=== PATIENT | female | born 1935 | race Caucasian/White ===

== ENCOUNTER 2018-02-09 18:58 | Emergency (ER) | payer OTHER ==
--- NOTE | 2018-02-09 20:45 | RAD REPORT ---
EXAM DESCRIPTION: Pooja Single View02/09/2018 8:16 pm CLINICAL HISTORY: sob COMPARISON: none FINDINGS: The lungs appear clear of acute infiltrate. The heart is mildly enlarged IMPRESSION: No acute abnormalities displayed
--- NOTE | 2018-02-09 20:48 | RAD REPORT ---
EXAM DESCRIPTION: CT - Head Brain Wo Cont - 02/09/2018 8:31 pm CLINICAL HISTORY: Alteration of consciousness/ general weakness COMPARISON: February 2017 TECHNIQUE: Computed axial tomography of the head was obtained. IV contrast was not requested. All CT scans are performed using dose optimization technique as appropriate and may include automated exposure control or mA/KV adjustment according to patient size. FINDINGS: An intracranial bleed is not seen . The ventricles are normal in caliber. No extra-axial fluid collection is noted. Moderate low-density areas within periventricular, deep and subcortical white matter likely represent ischemic changes secondary to small vessel disease. Fluid within the sinuses/ mastoids is not seen. IMPRESSION: No acute intracranial abnormality is seen. If patient's symptoms persist MRI of the bra in would be recommended.
[2018-02-09 21:28] LABS: Absolute Lymphocytes (CBC) 1.5 K/uL (0.7-4.9); Absolute Monocytes 0.7 K/uL (0.1-1.3); Absolute Neutrophil 4.3 K/uL (1.8-8.0); Basophils % 0.5 % (0-1.3); Eosinophils % 2.5 % (0-4.4); Hematocrit 38.1 % (36.0-45.0); Lymphocytes % 21.7 % (15.3-44.8); MCH 30.8 pg (27.0-35.0); MCV 90.5 fL (80-100); MPV 8.2 fL (7.6-11.3); Monocytes % 10.5 % (3.3-12.3); RBC Red Blood Cell Count 4.21 M/uL (3.86-4.86)
[2018-02-09 21:46] LABS: Protime INR 1.08
[2018-02-09 21:48] LABS: Potassium 4.1 mEq/L (3.6-5.0)
[2018-02-09 21:52] LABS: Urine Blood NEGATIVE (NEG); Urine Glucose NEGATIVE (NEG); Urine Protein NEGATIVE (NEG); Urine pH 6.5 (5.0-7.0)
[2018-02-09 21:54] LABS: Albumin 4.2 g/dL (3.2-5.5); Bilirubin Direct 0.1 mg/dL (0-0.2); Bilirubin Total 0.5 mg/dL (0.3-1.2); Magnesium 1.6 mg/dL (1.8-2.5); Protein, Total 7.2 g/dL (6.0-8.3)
[2018-02-09 21:57] LABS: CKMB Creatine Kinase MB 1.5 ng/ml (0.3-4.0)
--- NOTE | 2018-02-09 22:39 | ER ---
Nurse's Notes [facility] Name: Teetee Cherry Age: 82 yrs Sex: Female : 1935 Arrival Date: 02/09/2018 Time: 19:02 Bed 15 Private MD: Varun Newton V Diagnosis: Hypomagnesemia;Weakness-General Presentation: 02/09 19:31 Presenting complaint: Patient states: Patient started having difficulty breathing today ao and a feeling of weakness. Patient complains of weakness and difficulty breathing. Patient denies chills, fever, vomiting but reports some nausea. Transition of care: patient was not received from another setting of care. Onset of symptoms was February 09, 2018 at 06:00. Initial Sepsis Screen: Does the patient meet any 2 criteria? Mean Arterial Pressure (MAP) < 65. No. Patient's initial sepsis screen is negative. Does the patient have a suspected source of infection? No. Patient's initial sepsis screen is negative. Care prior to arrival: Saw Dr Newton this morning. 19:31 Method Of Arrival: Ambulatory ao 19:31 Acuity: RADHA 3 ao Triage Assessment: 19:45 General: Behavior is calm, appropriate for age. General: Appears in no apparent ao distress. Respiratory: Reports shortness of breath on exertion Onset: The symptoms/episode began/occurred this morning, the patient has mild shortness of breath. Historical: - Allergies: 19:40 No Known Allergies; ao - Home Meds: 19:40 Norvasc 5 mg Oral tab 1 tab once daily [Active]; symbicord [Active]; levothyroxine 125 ao mcg tab 1 tab once daily [Active]; Eliquis 5 mg oral tab 1 tab 2 times per day [Active]; citalopram 20 mg tab 1 tab once daily [Active]; Diovan 40 mg Oral tab 1 tab 2 times per day [Active]; - PMHx: 19:40 Hypertension; Atrial Fib; Hypothyroidism; dyslipidemia; ao - PSHx: 19:40 Cholecystectomy; ao - Immunization history:: Adult Immunizations unknown. - Social history:: Smoking status: Patient/guardian denies using tobacco, Patient/guardian denies using alcohol, street drugs. Screenin:40 Abuse screen: Denies threats or abuse. Denies injuries from another. Nutritional ao screening: No deficits noted. Tuberculosis screening: No symptoms or risk factors identified. Fall Risk None identified. Assessment: 19:41 General: Appears in no apparent distress. Pain: Denies pain. Neuro: Level of ao Consciousness is awake, alert, obeys commands, Oriented to person, place, time, situation, Moves all extremities. Speech is normal. Cardiovascular: Capillary refill < 3 seconds Patient's skin is warm and dry. Rhythm is regular. Respiratory: Airway is patent Respiratory effort is even, unlabored, Respiratory pattern is regular, symmetrical, Breath sounds are diminished. GI: Abdomen is obese. : No signs and/or symptoms were reported regarding the genitourinary system. EENT: No signs and/or symptoms were reported regarding the EENT system. Derm: Skin is intact, Skin is pink, warm \T\ dry. Skin temperature is warm. Musculoskeletal: Range of motion: limited in all extremities. 21:18 Reassessment: No changes from previously documented assessment. Patient and/or family ao updated on plan of care and expected duration. Pain level reassessed. Patient is alert, oriented x 3, equal unlabored respirations, skin warm/dry/pink. Waiting on results. Lab work just draw due to not been able to get an IV. Labs had been send. 22:20 Reassessment: No changes from previously documented assessment. Patient and/or family ao updated on plan of care and expected duration. Pain level reassessed. Patient is alert, oriented x 3, equal unlabored respirations, skin warm/dry/pink. 23:20 Reassessment: Patient appears in no apparent distress at this time. Patient and/or ao family updated on plan of care and expected duration. Pain level reassessed. Patient is alert, oriented x 3, equal unlabored respirations, skin warm/dry/pink. Patient to be discharge after magnesium that is running for two hour is complete. 02/10 00:20 Reassessment: Dc instructions given to patient and daughter. Patient understand the POC ao and to follow up with PCP. Patient has no questions at this time. Vital Signs: 02/09 19:35 BP 170 / 80; Pulse 70; Resp 14; Temp 99.7(A); Pulse Ox 96% on R/A; Weight 108.86 kg ao (R); Height 5 ft. 9 in. (175.26 cm) (R); Pain 0/10; 20:20 BP 164 / 83; Pulse 78; Resp 16; Pulse Ox 98% on R/A; Pain 0/10; ao 21:21 BP 146 / 88; Pulse 64; Resp 16; Pulse Ox 96% on R/A; Pain 0/10; ao 22:20 BP 109 / 63; Pulse 66; Resp 16; Pulse Ox 95% on R/A; ao 23:30 BP 130 / 91; Pulse 68; Resp 14; Pulse Ox 96% on R/A; ao 02/10 00:23 BP 130 / 66; Pulse 68; Resp 18; Pulse Ox 98% on R/A; ao 02/09 19:35 Body Mass Index 35.44 (108.86 kg, 175.26 cm) ao ED Course: 02/09 19:02 Patient arrived in ED. al2 19:03 Varun Newton MD is Private Physician. al2 19:31 Justin Marcano, RN is Primary Nurse. ao 19:35 Triage completed. ao 19:36 Arm band placed on right wrist. Patient placed in an exam room, on a stretcher, on ao oxygen, on conveyor monitor, on pulse oximetry, Patient notified of wait time. 19:45 Patient has correct armband on for positive identification. pvc monitor on. Pulse ao ox on. NIBP on. 19:54 Juan Morocho PA is PHCP. cp 19:54 Juan Garcia MD is Attending Physician. cp 20:16 X-ray completed. Portable x-ray completed in exam room. Patient tolerated procedure bb2 well. 20:16 XRAY Chest (1 view) In Process Unspecified. EDMS 20:[address] via stretcher. nj 20:31 CT Head Brain wo Cont In Process Unspecified. EDMS 21:21 Inserted saline lock: 20 gauge in left antecubital area, using aseptic technique. Blood ao collected. 22:37 Varun Newton MD is Referral Physician. cp 02/10 00:23 IV discontinued, intact, bleeding controlled, No redness/swelling at site. Pressure ao dressing applied. 00:26 No provider procedures requiring assistance completed. ao Administered Medications: 02/09 23:00 Drug: Aspirin Chewable Tablet 324 mg Route: PO; ao 02/10 00:00 Follow up: Response: No adverse reaction ao 02/09 23:00 Drug: Magnesium Sulfate 2 grams Route: IVPB; Infused Over: 2 hrs; Site: left ao antecubital; 02/10 00:00 Follow up: IV Status: Completed infusion; IV Intake: 50ml ao Intake: 00:00 IV: 50ml; Total: 50ml. ao Outcome: 02/09 22:39 Discharge ordered by MD. browning 02/10 00:26 Discharged to home ambulatory, with crutches. ao Condition: stable Discharge instructions given to patient, Instructed on discharge instructions, follow up and referral plans. Demonstrated understanding of instructions, follow-up care, medications, Prescriptions given X 1. 00:28 Patient left the ED. ao Signatures: Dispatcher [employer] EDMS Juan Morocho PA PA cp Ortiz, Alex, RN RN Ian De La Vega Brittany bb2 Love, Angelica al2 Corrections: (The following items were deleted from the chart) 02/09 21:21 20:20 BP 146 / 88; Pulse 64bpm; Resp 16bpm; Pulse Ox 96% RA; Pain 0/10; ao ao
--- NOTE | 2018-02-09 22:39 | EDPHYS ---
Physician Documentation [facility] Name: Teetee Cherry Age: 82 yrs Sex: Female : 1935 Arrival Date: 02/09/2018 Time: 19:02 Bed 15 Private MD: Varun Newton V ED Physician Juan Garcia HPI: 02/09 20:10 This 82 yrs old Female presents to ER via Ambulatory with complaints of cp Breathing Difficulty, Weakness, Nausea. 20:10 The patient has shortness of breath with light activity. Onset: The symptoms/episode cp began/occurred today. Duration: The symptoms are continuous. Associated signs and symptoms: Pertinent positives: general weakness, Pertinent negatives: chest pain, diaphoresis, dizziness, fever. 20:10 Severity of symptoms: in the emergency department the symptoms have improved moderately.cp Historical: - Allergies: 19:40 No Known Allergies; ao - Home Meds: 19:40 Norvasc 5 mg Oral tab 1 tab once daily [Active]; symbicord [Active]; levothyroxine 125 ao mcg tab 1 tab once daily [Active]; Eliquis 5 mg oral tab 1 tab 2 times per day [Active]; citalopram 20 mg tab 1 tab once daily [Active]; Diovan 40 mg Oral tab 1 tab 2 times per day [Active]; - PMHx: 19:40 Hypertension; Atrial Fib; Hypothyroidism; dyslipidemia; ao - PSHx: 19:40 Cholecystectomy; ao - Immunization history:: Adult Immunizations unknown. - Social history:: Smoking status: Patient/guardian denies using tobacco, Patient/guardian denies using alcohol, street drugs. ROS: 20:15 Constitutional: Negative for body aches, chills, fever, poor PO intake. cp 20:15 Eyes: Negative for injury, pain, redness, and discharge. cp 20:15 ENT: Negative for drainage from ear(s), ear pain, sore throat, difficulty swallowing, difficulty handling secretions. 20:15 Neck: Negative for pain with movement, pain at rest, stiffness. 20:15 Cardiovascular: Negative for chest pain, edema, palpitations. 20:15 Respiratory: Positive for shortness of breath, Negative for cough, wheezing. 20:15 Abdomen/GI: Negative for abdominal pain, vomiting, diarrhea, constipation, black/tarry stool, rectal bleeding. 20:15 Back: Negative for pain at rest, pain with movement. 20:15 : Negative for urinary symptoms. 20:15 Skin: Negative for cellulitis, rash. 20:15 Neuro: Positive for general weakness, Negative for altered mental status, headache, loss of consciousness, syncope, near syncope. 20:15 All other systems are negative. Exam: 19:40 ECG was reviewed by the Attending Physician. cp 20:20 Constitutional: The patient appears in no acute distress, alert, awake, cp non-diaphoretic, non-toxic, well developed, well nourished. 20:20 Head/Face: Normocephalic, atraumatic. Eyes: Pupils equal round and reactive to light, cp extra-ocular motions intact. Lids and lashes normal. Conjunctiva and sclera are non-icteric and not injected. Cornea within normal limits. Periorbital areas with no swelling, redness, or edema. ENT: Nares patent. No nasal discharge, no septal abnormalities noted. Tympanic membranes are normal and external auditory canals are clear. Oropharynx with no redness, swelling, or masses, exudates, or evidence of obstruction, uvula midline. Mucous membranes moist. Neck: Trachea midline, no thyromegaly or masses palpated, and no cervical lymphadenopathy. Supple, full range of motion without nuchal rigidity, or vertebral point tenderness. No Meningismus. Chest/axilla: Normal chest wall appearance and motion. Nontender with no deformity. No lesions are appreciated. 20:20 Cardiovascular: Rate: normal, Rhythm: regular, Pulses: Pulses are 2+ in right radial artery and left radial artery. Edema: is not appreciated, JVD: is not appreciated. 20:20 Respiratory: the patient does not display signs of respiratory distress, Respirations: normal, no use of accessory muscles, no retractions, no splinting, no tachypnea, labored breathing, is not present, Breath sounds: are clear throughout, no decreased breath sounds, no stridor, no wheezing. 20:20 Abdomen/GI: Inspection: abdomen appears normal, Bowel sounds: active, all quadrants, Palpation: abdomen is soft and non-tender, in all quadrants, voluntary guarding, is not appreciated, involuntary guarding, is not appreciated. 20:20 Back: pain, is absent, ROM is normal. 20:20 Skin: cellulitis, is not appreciated, no rash present. 20:20 Neuro: Orientation: to person, place \T\ time. Mentation: lucid, able to follow commands, Cerebellar function: Romberg testing is negative, normal finger to nose testing, Motor: moves all fours, strength is normal, Sensation: no obvious gross deficits. Vital Signs: 19:35 BP 170 / 80; Pulse 70; Resp 14; Temp 99.7(A); Pulse Ox 96% on R/A; Weight 108.86 kg ao (R); Height 5 ft. 9 in. (175.26 cm) (R); Pain 0/10; 20:20 BP 164 / 83; Pulse 78; Resp 16; Pulse Ox 98% on R/A; Pain 0/10; ao 21:21 BP 146 / 88; Pulse 64; Resp 16; Pulse Ox 96% on R/A; Pain 0/10; ao 22:20 BP 109 / 63; Pulse 66; Resp 16; Pulse Ox 95% on R/A; ao 23:30 BP 130 / 91; Pulse 68; Resp 14; Pulse Ox 96% on R/A; ao 02/10 00:23 BP 130 / 66; Pulse 68; Resp 18; Pulse Ox 98% on R/A; ao 02/09 19:35 Body Mass Index 35.44 (108.86 kg, 175.26 cm) ao MDM: 02/09 19:54 Patient medically screened. cp 21:00 Differential diagnosis: asthma, Bronchitis CHF exacerbation, Chronic Obstructive cp Pulmonary Disease pneumonia, Unstable Angina CVA, UTI, electrolyte abnormality. 22:30 Data reviewed: vital signs, nurses notes, lab test result(s), EKG, radiologic studies. cp 22:30 Test interpretation: by ED physician or midlevel provider: ECG, plain radiologic cp studies. 22:35 Physician consultation: Varun Newton MD was called at 22:35, was contacted at 22:35, cp regarding patient's condition, recommends discharge to home and f/u in clinic. 02/09 20:01 Order name: Basic Metabolic Panel; Complete Time: 22:12 cp 02/09 22:12 Interpretation: Normal except: BUN 27; CRE 1.34; GFR 38. cp 02/09 20:01 Order name: BNP; Complete Time: 22:12 cp 02/09 22:12 Interpretation: BNP 134; Reviewed. cp 02/09 20:01 Order name: CBC with Diff; Complete Time: 21:32 cp 02/09 20:01 Order name: Ckmb; Complete Time: 22:12 cp 02/09 20:01 Order name: CPK; Complete Time: 22:12 cp 02/09 20:01 Order name: LFT's; Complete Time: 22:12 cp 02/09 20:01 Order name: Magnesium; Complete Time: 22:12 cp 02/09 20:01 Order name: PT-INR; Complete Time: 22:13 cp 02/09 22:14 Interpretation: Abnormal: PT 12.7. cp 02/09 20:01 Order name: Ptt, Activated; Complete Time: 22:13 cp 02/09 20:01 Order name: Troponin (emerg Dept Use Only); Complete Time: 22:12 cp 02/09 20:01 Order name: XRAY Chest (1 view); Complete Time: 20:52 cp 02/09 20:52 Interpretation: Report review. 02/09 20:11 Order name: CT Head Brain wo Cont; Complete Time: 20:52 02/09 20:52 Interpretation: Report reviewed. 02/09 21:36 Order name: Urine Dipstick--Ancillary (enter results); Complete Time: 22:12 oe 02/09 20:01 Order name: EKG; Complete Time: 20:02 cp 02/09 20:01 Order name: Cardiac monitoring; Complete Time: 20:22 cp 02/09 20:01 Order name: EKG - Nurse/Tech; Complete Time: 20:22 cp 02/09 20:01 Order name: IV Saline Lock; Complete Time: 21:18 cp 02/09 20:01 Order name: Labs collected and sent; Complete Time: 21:18 cp 02/09 20:01 Order name: O2 Per Protocol; Complete Time: 20:22 cp 02/09 20:01 Order name: O2 Sat Monitoring; Complete Time: 20:22 cp 02/09 20:01 Order name: Urine Dipstick-Ancillary (obtain specimen); Complete Time: 21:18 cp 02/09 22:23 Order name: PO challenge; Complete Time: 23:10 cp EC:40 Rate is 59 beats/min. Rhythm is irregularly irregular. QRS interval is normal at 100 cp msec. QT interval is normal. No ST changes noted. Interpreted by me. Reviewed by me. Administered Medications: 23:00 Drug: Aspirin Chewable Tablet 324 mg Route: PO; ao 02/10 00:00 Follow up: Response: No adverse reaction ao 02/09 23:00 Drug: Magnesium Sulfate 2 grams Route: IVPB; Infused Over: 2 hrs; Site: left ao antecubital; 02/10 00:00 Follow up: IV Status: Completed infusion; IV Intake: 50ml ao Disposition: 14:31 Co-signature as Attending Physician, Juan Garcia MD I agree with the assessment and [facility] plan of care. Disposition: 02/09/18 22:39 Discharged to Home. Impression: Hypomagnesemia, Weakness - General. - Condition is Stable. - Discharge Instructions: Hypomagnesemia, Weakness. - Prescriptions for magnesium - take 400 milligram by ORAL route once daily for 3 days; 3 milligram. - Medication Reconciliation Form, Thank You Letter, Antibiotic Education, Prescription Opioid Use form. - Follow up: Varun Newton MD; When: call office in morning for follow up appointment; Reason: Recheck today's complaints. - Problem is new. - Symptoms have improved. Signatures: Dispatcher [employer] EDJuan Albert MD MD cha Page, Corey, PA PA cp Ortiz, Alex, RN RN ao
[2018-02-09] MEDS ORDERED: ASPIRIN 81 MG CHEWABLE TABLET ONE (23:12)
[2018-02-09] MEDS ORDERED: Magnesium Sulfate 2gm IVPB 2 G/50 ML BAG IV ONE (23:12)
[2018-02-10 00:42] VITALS: TEMP 99.7
[2018-02-10 00:48] VITALS: BP 130/66; O2SAT 98
--- NOTE | 2018-02-10 16:28 | EKG ---
Test Date: 2018-02-09 Test Time: 19:35:42 Radio Frequency Engineer: DENNIS MEASUREMENT RESULTS: Intervals: Rate: 59 [place]: QRSD: 100 QT: 444 QTc: 439 [place]: P: UT: QRS: -8 T: 56 INTERPRETIVE STATEMENTS: Atrial fibrillation with slow ventricular response Nonspecific T wave abnormality Abnormal ECG Compared to ECG 03/07/2015 19:14:12 T-wave abnormality now present Ventricular premature complex(es) no longer present Myocardial infarct finding no longer present Electronically Signed On 02-10-18 16:23:59 CDT by Obinna Denson
== END 2018-02-10 00:28 | disposition home or self-care (01) ==
LOC: ER 18:58
DX: E83.42 Hypomagnesemia (principal); I10 Essential (primary) hypertension; E03.9 Hypothyroidism, unspecified; I48.91 Unspecified atrial fibrillation; Z79.01 Long term (current) use of anticoagulants
CPT/HCPCS: 36415; 70450; 71045; 80048; 80076; 81003; 82550; 82553; 83735; 83880; 84484; 85025; 85610; 85730; 93005; 96365; 99285; J3475

== ENCOUNTER 2018-06-05 23:08 | Emergency (ER) | payer OTHER ==
[2018-06-06 00:56] LABS: Absolute Lymphocytes (CBC) 1.3 K/uL (0.7-4.9); Absolute Monocytes 0.5 K/uL (0.1-1.3); Absolute Neutrophil 3.2 K/uL (1.8-8.0); Basophils % 0.5 % (0-1.3); Eosinophils % 3.5 % (0-4.4); Hematocrit 36.8 % (36.0-45.0); Lymphocytes % 24.8 % (15.3-44.8); MCH 31.5 pg (27.0-35.0); MCV 91.7 fL (80-100); Monocytes % 10.2 % (3.3-12.3); RBC Red Blood Cell Count 4.02 M/uL (3.86-4.86)
[2018-06-06 01:00] LABS: Protime INR 1.13
[2018-06-06 01:12] LABS: Albumin 3.7 g/dL (3.4-5.0); Bilirubin Direct 0.2 mg/dL (0-0.2); Bilirubin Total 0.7 mg/dL (0.2-1.0); Magnesium 2.1 mg/dL (1.8-2.4); Potassium 3.5 mmol/L (3.5-5.1); Protein, Total 7.1 g/dL (6.4-8.2)
[2018-06-06 01:44] LABS: Urine Blood NEGATIVE (NEG); Urine Glucose NEGATIVE (NEG); Urine Protein NEGATIVE (NEG)
--- NOTE | 2018-06-06 02:05 | EDPHYS ---
Physician Documentation [facility] Name: Teetee Cherry Age: 82 yrs Sex: Female : 1935 Arrival Date: 06/05/2018 Time: 23:09 Bed 23 Private MD: Varun Newton V ED Physician Inocencio Diamond HPI: 06/06 00:06 This 82 yrs old Female presents to ER via Wheelchair with complaints of High pm1 Blood Pressure. 00:06 The patient has elevated blood pressure and discovered this at home, with a home pm1 device. Onset: The symptoms/episode began/occurred today. Associated signs and symptoms: Pertinent positives: headache, that has markedly improved, Pertinent negatives: chest pain, dizziness, lightheadedness, nausea, visual changes, vomiting, weakness. Severity of symptoms: in the emergency department the blood pressure is unchanged. Patient with complaints of high blood pressure today. Contacted her PCP around 0 and was instructed to take an additional Lasix 40 mg PO and resume her home medications in the morning and follow up in the office on Tuesday. Patient typically takes Lasix 40 mg PO daily. Patient came to the ER because her blood pressure was still elevated. Patient recently saw her supervisor hardboard, on Tuesday and was told that she is doing fine. Patient denies any increased shortness of breath but her daughter believes that she is having some shortness of breath. Historical: - Allergies: 06/05 23:40 No Known Allergies; kr2 - Home Meds: 23:40 Norvasc 5 mg Oral tab 1 tab once daily [Active]; Eliquis 5 mg Oral tab 1 tab 2 times kr2 per day for Afib [Active]; levothyroxine 125 mcg tab 1 tab once daily [Active]; citalopram 20 mg tab 1 tab once daily [Active]; magnesium oxide 400 mg Oral tab 400 mg twice a day [Active]; Vitamin D3 oral oral daily [Active]; Lupin Irbesartan 300mg PO daily [Active]; carvedilol 25 mg oral tab 1 tab 2 times per day [Active]; Famotidine Oral once daily [Active]; furosemide 40 mg Oral tab 1 tab once daily [Active]; valsartan 320 mg oral tab 1 tab once daily [Active]; - PMHx: 23:40 dyslipidemia; Atrial Fib; Hypertension; Hypothyroidism; kr2 - PSHx: 23:40 Cholecystectomy; Hysterectomy; kr2 - Immunization history:: Adult Immunizations up to date. - Social history:: Smoking status: Patient/guardian denies using tobacco. - Ebola Screening: : No symptoms or risks identified at this time. ROS: 06/06 00:20 Constitutional: Negative for fever, chills, and weight loss, Eyes: Negative for injury, pm1 pain, redness, and discharge, ENT: Negative for injury, pain, and discharge, Neck: Negative for injury, pain, and swelling, Cardiovascular: Negative for chest pain, palpitations, and edema, Abdomen/GI: Negative for abdominal pain, nausea, vomiting, diarrhea, and constipation, Back: Negative for injury and pain, : Negative for injury, bleeding, discharge, and swelling, MS/Extremity: Negative for injury and deformity, Skin: Negative for injury, rash, and discoloration. Neuro: Negative for headache, weakness, numbness, tingling, and seizure. Respiratory: Positive for cough, shortness of breath, Negative for sputum production, wheezing. Exam: 00:20 Constitutional: This is a well developed, well nourished patient who is awake, alert, pm1 and in no acute distress. Head/Face: Normocephalic, atraumatic. Eyes: Pupils equal round and reactive to light, extra-ocular motions intact. Lids and lashes normal. Conjunctiva and sclera are non-icteric and not injected. Cornea within normal limits. Periorbital areas with no swelling, redness, or edema. ENT: Nares patent. No nasal discharge, no septal abnormalities noted. Tympanic membranes are normal and external auditory canals are clear. Oropharynx with no redness, swelling, or masses, exudates, or evidence of obstruction, uvula midline. Mucous membranes moist. Neck: Trachea midline, no thyromegaly or masses palpated, and no cervical lymphadenopathy. Supple, full range of motion without nuchal rigidity, or vertebral point tenderness. No Meningismus. Chest/axilla: Normal chest wall appearance and motion. Nontender with no deformity. No lesions are appreciated. Cardiovascular: Regular rate and rhythm with a normal S1 and S2. No gallops, murmurs, or rubs. Normal PMI, no JVD. No pulse deficits. Respiratory: Lungs have equal breath sounds bilaterally, clear to auscultation and percussion. No rales, rhonchi or wheezes noted. No increased work of breathing, no retractions or nasal flaring. Abdomen/GI: Soft, non-tender, with normal bowel sounds. No distension or tympany. No guarding or rebound. No evidence of tenderness throughout. Back: No spinal tenderness. No costovertebral tenderness. Full range of motion. Skin: Warm, dry with normal turgor. Normal color with no rashes, no lesions, and no evidence of cellulitis. MS/ Extremity: Pulses equal, no cyanosis. Neurovascular intact. Full, normal range of motion. 00:20 Neuro: Orientation: is normal, Motor: is normal, moves all fours. Vital Signs: 06/05 23:25 BP 192 / 106; Pulse 51; Resp 18; Temp 98; Pulse Ox 100% ; Weight 108.86 kg; Height 5 kr2 ft. 9 in. (175.26 cm); Pain 1/10; 06/06 00:00 BP 175 / 84; Pulse 59; Resp 18; Pulse Ox 96% on R/A; kr2 01:00 BP 156 / 97; Pulse 66; Resp 17; Pulse Ox 95% on R/A; kr2 01:51 BP 143 / 82; Pulse 61; Resp 17 S; Pulse Ox 93% on R/A; bs1 06/05 23:25 Body Mass Index 35.44 (108.86 kg, 175.26 cm) kr2 MDM: 06/05 23:38 Patient medically screened. pm1 06/06 02:00 Data reviewed: vital signs. Counseling: I had a detailed discussion with the patient pm1 and/or guardian regarding: the historical points, exam findings, and any diagnostic results supporting the discharge/admit diagnosis, lab results, radiology results. 02:00 ED course: Offered patient admission for further diuresis. Patient feels good and wants pm1 to go home. Patient's blood pressure has improved and she does not have any shortness of breath after urinating multiple times. instructed patient to contact Dr. Newton if he would like the patient to take Lasix 40mg PO BID as I would recommend. 06/06 00:05 Order name: Basic Metabolic Panel; Complete Time: 01:37 pm1 06/06 00:05 Order name: CBC with Diff; Complete Time: 01:09 pm1 06/06 00:05 Order name: LFT's; Complete Time: 01:37 pm1 06/06 00:05 Order name: Magnesium; Complete Time: 01:37 pm06/06 00:05 Order name: NT PRO-BNP; Complete Time: 01:37 pm1 06/06 00:05 Order name: PT-INR; Complete Time: 01:09 pm1 06/06 00:05 Order name: Ptt, Activated; Complete Time: 01:09 pm06/06 00:05 Order name: Troponin (emerg Dept Use Only); Complete Time: 01:37 pm1 06/06 00:05 Order name: XRAY Chest (1 view); Complete Time: 16:12 pm1 06/06 00:05 Order name: EKG; Complete Time: 00:07 pm1 06/06 00:05 Order name: Cardiac monitoring; Complete Time: 00:21 pm1 06/06 01:07 Order name: Urine Dipstick--Ancillary (enter results); Complete Time: 02:09 ms 06/06 01:23 Order name: Head Brain Wo Cont; Complete Time: 16:12 EDMS 06/06 00:05 Order name: EKG - Nurse/Tech; Complete Time: 00:21 pm1 06/06 00:05 Order name: IV Saline Lock; Complete Time: 00:35 pm1 06/06 00:05 Order name: Labs collected and sent; Complete Time: 00:21 pm1 06/06 00:05 Order name: O2 Per Protocol; Complete Time: 00:21 pm1 06/06 00:05 Order name: O2 Sat Monitoring; Complete Time: 00:21 pm1 06/06 00:05 Order name: Urine Dipstick-Ancillary (obtain specimen); Complete Time: 01:04 pm1 Administered Medications: No medications were administered Disposition: 07:02 Co-signature as Attending Physician, Adarsh Duff NP I agree with the assessment and 4 plan of care. Attestation: The patient's history, exam findings, diagnostics, and a summary of any interventions or procedures was reviewed in detail with Adarsh Duff NP. Disposition: 06/06/18 02:05 Discharged to Home. Impression: Essential (primary) hypertension, Heart failure. - Condition is Stable. - Discharge Instructions: Heart Failure, Hypertension, How to Take Your Blood Pressure, Unnv-ns-[id number], DASH Eating Plan, Managing Your Hypertension. - Medication Reconciliation Form, Thank You Letter form. - Follow up: Varun Newton MD; When: 2 - 3 days; Reason: Recheck today's complaints, Continuance of care, Re-evaluation by your physician. Follow up: Emergency Department; When: As needed; Reason: Worsening of condition. - Problem is new. - Symptoms have improved. Signatures: Dispatcher [employer] [facility] Adarsh Duff, KIERAN BUSINESS EMPLOYMENT SPECIALIST pm1 Renetta Ray, RN RN kr2 Ivelisse Amezcua RN RN bs1 Inocencio Diamond MD MD tw4 Corrections: (The following items were deleted from the chart) 01:23 00:18 Head Brain Wo Cont+CT.RAD.BRZ ordered. [facility] 02:08 02:05 06/06/2018 02:05 Discharged to Home. Impression: Essential (primary) pm1 hypertension. Condition is Stable. Forms are Medication Reconciliation Form, Thank You Letter, Antibiotic Education, Prescription Opioid Use. Follow up: Varun Newton; When: 2 - 3 days; Reason: Recheck today's complaints, Continuance of care, Re-evaluation by your physician. Follow up: Emergency Department; When: As needed; Reason: Worsening of condition. Problem is new. Symptoms have improved. pm1 02:18 02:08 06/06/2018 02:05 Discharged to Home. Impression: Essential (primary) bs1 hypertension; Heart failure. Condition is Stable. Discharge Instructions: Hypertension, How to Take Your Blood Pressure, [id number]-[id number], DASH Eating Plan, Managing Your Hypertension, Heart Failure. Forms are Medication Reconciliation Form, Thank You Letter, Antibiotic Education, Prescription Opioid Use. Follow up: Varun Newton; When: 2 - 3 days; Reason: Recheck today's complaints, Continuance of care, Re-evaluation by your physician. Follow up: Emergency Department; When: As needed; Reason: Worsening of condition. Problem is new. Symptoms have improved. pm1
--- NOTE | 2018-06-06 02:05 | ER ---
Nurse's Notes [facility] Name: Teetee Cherry Age: 82 yrs Sex: Female : 1935 Arrival Date: 06/05/2018 Time: 23:09 Bed 23 Private MD: Varun Newton V Diagnosis: Essential (primary) hypertension;Heart failure Presentation: 06/05 23:23 Presenting complaint: Patient's daughter reports patient has had elevated blood kr2 pressure today. At home they had a reading of 198/100. They report Dr. Newton did adjust her medications 2-3 weeks ago. They spoke with Dr. Newton at around 2200 and he instructed patient to take an extra Lasix 40mg PO. Transition of care: patient was not received from another setting of care. Onset of symptoms was June 05, 2018. Risk Assessment: Do you want to hurt yourself or someone else? Patient reports no desire to harm self or others. Initial Sepsis Screen: Does the patient meet any 2 criteria? No. Patient's initial sepsis screen is negative. Does the patient have a suspected source of infection? No. Patient's initial sepsis screen is negative. Care prior to arrival: Medication(s) given: Lasix 40mg \T\ 2230. 23:23 Method Of Arrival: Wheelchair kr2 23:23 Acuity: RADHA 3 kr2 Triage Assessment: 23:26 General: Appears in no apparent distress. comfortable, well groomed, well developed, kr2 well nourished, Behavior is calm, cooperative, appropriate for age. Pain: Complains of pain in head Pain does not radiate. Pain currently is 1 out of 10 on a pain scale. Quality of pain is described as aching, dull, Is continuous. 23:41 EENT: Oral mucosa is moist. Neuro: Level of Consciousness is awake, alert, obeys kr2 commands, Oriented to person, place, time, situation, Appropriate for age. Cardiovascular: Capillary refill < 3 seconds in bilateral fingers Patient's skin is warm and dry. Rhythm is regular. Respiratory: Airway is patent Respiratory effort is even, unlabored, Respiratory pattern is regular, symmetrical. GI: Abdomen is flat, non-distended. : Denies burning with urination. Derm: Skin is intact, is healthy with good turgor. Musculoskeletal: Circulation, motion, and sensation intact. Historical: - Allergies: 23:40 No Known Allergies; kr2 - Home Meds: 23:40 Norvasc 5 mg Oral tab 1 tab once daily [Active]; Eliquis 5 mg Oral tab 1 tab 2 times kr2 per day for Afib [Active]; levothyroxine 125 mcg tab 1 tab once daily [Active]; citalopram 20 mg tab 1 tab once daily [Active]; magnesium oxide 400 mg Oral tab 400 mg twice a day [Active]; Vitamin D3 oral oral daily [Active]; Lupin Irbesartan 300mg PO daily [Active]; carvedilol 25 mg oral tab 1 tab 2 times per day [Active]; Famotidine Oral once daily [Active]; furosemide 40 mg Oral tab 1 tab once daily [Active]; valsartan 320 mg oral tab 1 tab once daily [Active]; - PMHx: 23:40 dyslipidemia; Atrial Fib; Hypertension; Hypothyroidism; kr2 - PSHx: 23:40 Cholecystectomy; Hysterectomy; kr2 - Immunization history:: Adult Immunizations up to date. - Social history:: Smoking status: Patient/guardian denies using tobacco. - Ebola Screening: : No symptoms or risks identified at this time. Screenin:26 Abuse screen: Denies threats or abuse. Denies injuries from another. Nutritional kr2 screening: No deficits noted. Tuberculosis screening: No symptoms or risk factors identified. Fall Risk None identified. Assessment: 23:42 General: See triage assessment. kr2 06/06 01:01 Reassessment: Patient appears in no apparent distress at this time. Patient and/or bs1 family updated on plan of care and expected duration. Pain level reassessed. Patient is alert, oriented x 3, equal unlabored respirations, skin warm/dry/pink. Report received from Renetta Ray RN. Pending lab results. 02:02 Reassessment: Patient appears in no apparent distress at this time. Patient and/or bs1 family updated on plan of care and expected duration. Pain level reassessed. Patient is alert, oriented x 3, equal unlabored respirations, skin warm/dry/pink. Patient states understanding of discharge instructions/POC Patient denies pain at this time. Patient states feeling better. Patient states symptoms have improved. Vital Signs: 06/05 23:25 BP 192 / 106; Pulse 51; Resp 18; Temp 98; Pulse Ox 100% ; Weight 108.86 kg; Height 5 kr2 ft. 9 in. (175.26 cm); Pain /; 06/06 00:00 BP 175 / 84; Pulse 59; Resp 18; Pulse Ox 96% on R/A; kr2 01:00 BP 156 / 97; Pulse 66; Resp 17; Pulse Ox 95% on R/A; kr2 01:51 BP 143 / 82; Pulse 61; Resp 17 S; Pulse Ox 93% on R/A; bs1 06/05 23:25 Body Mass Index 35.44 (108.86 kg, 175.26 cm) kr2 ED Course: 06/05 23:09 Patient arrived in ED. es 23:09 Varun Newton MD is Private Physician. es 23:14 Renetta Ray, BRIDGER is Primary Nurse. kr2 23:25 Triage completed. kr2 23:26 Adarsh Duff NP is PHCP. pm1 23:26 Inocencio Diamond MD is Attending Physician. pm1 23:41 Arm band placed on. kr2 23:41 Patient has correct armband on for positive identification. Bed in low position. Call kr2 light in reach. Adult w/ patient. Pulse ox on. NIBP on. 06/06 00:20 EKG done, by ED staff, reviewed by Adarsh Duff NP. kr2 00:24 X-ray completed. Portable x-ray completed in exam room. Patient tolerated procedure kw well. 00:25 XRAY Chest (1 view) In Process Unspecified. EDMS 00:30 Inserted saline lock: 22 gauge in right antecubital area, using aseptic technique. kr2 Blood collected. 00:47 CT completed. Patient tolerated procedure well. Patient moved to CT via wheelchair. eh Patient moved back from CT. 00:55 Urine collected: clean catch specimen, clear. kr2 01:27 Head Brain Wo Cont In Process Unspecified. EDMS 02:03 Varun Newton MD is Referral Physician. pm1 02:03 No provider procedures requiring assistance completed. IV discontinued, bleeding bs1 controlled, No redness/swelling at site. Pressure dressing applied. Administered Medications: No medications were administered Outcome: 02:03 Condition: stable bs1 02:05 Discharge ordered by . pm1 02:17 Discharged to home via wheelchair. bs1 02:17 Discharge instructions given to patient, Instructed on discharge instructions, follow up and referral plans. 02:18 Patient left the ED. bs1 Signatures: Dispatcher [employer] Carmelita Crum Ervin eh Whitley, Kimberlee kw Marinas, Patrick, KIERAN WEB EDITOR pm1 Renetta Ray RN RN kr2 Ivelisse Amezcua RN RN bs1 Corrections: (The following items were deleted from the chart) 01:23 00:44 In radiology for Head Brain Wo Cont+CT.RAD.BRZ. YOSELIN EDMS
[2018-06-06 02:23] VITALS: TEMP 98
[2018-06-06 02:26] VITALS: BP 143/82; O2SAT 93
--- NOTE | 2018-06-06 08:27 | RAD REPORT ---
EXAM DESCRIPTION: CT - Head Brain Wo Cont - 06/06/2018 4:19 am CLINICAL HISTORY: HYPERTENSION Headache COMPARISON: Head Brain Wo Cont dated 02/09/2018 TECHNIQUE: All CT scans are performed using dose optimization technique as appropriate and may inclu de automated exposure control or mA/KV adjustment according to patient size. FINDINGS: No intracranial hemorrhage, hydrocephalus or extra-axial fluid collection.No areas of brai n edema or evidence of midline shift. The paranasal sinuses and mastoids are clear. The calvarium is intact. IMPRESSION: No acute intracranial abnormality.
--- NOTE | 2018-06-06 08:36 | RAD REPORT ---
EXAM DESCRIPTION: RAD - Chest Single View - 06/06/2018 12:27 am CLINICAL HISTORY: SOB Chest pain. COMPARISON: Chest Pa And Lat (2 Views) dated 06/01/2018; Chest Single View dated 02/09/2018; CHEST PA AND LAT 2 VIEW dated 06/12/2015; CHEST SINGLE VIEW dated 03/07/2015 FINDINGS: Portable technique limits examination quality. Mild linear subsegmental atelectasis is present in the left lung base. The lungs are otherwise emphys ematous. The heart is mildly to moderately enlarged. No displaced fractures. IMPRESSION: Mild linear atelectasis in the left lung base.
--- NOTE | 2018-06-06 12:47 | EKG ---
Test Date: 2018-06-06 Test Time: 00:14:07 Image Scientist: NIKHIL MEASUREMENT RESULTS: Intervals: Rate: 64 WI: QRSD: 94 QT: 426 QTc: 439 [place]: P: WI: QRS: -39 T: -31 INTERPRETIVE STATEMENTS: Atrial fibrillation Left axis deviation Cannot rule out Anterior infarct, age undetermined Abnormal ECG Compared to ECG 02/09/2018 19:35:42 Left-axis deviation now present Myocardial infarct finding now present T-wave abnormality no longer present Electronically Signed On 06-06-18 12:44:27 CDT by Obinna Denson
== END 2018-06-06 02:18 | disposition home or self-care (01) ==
LOC: ER 23:08
DX: I10 Essential (primary) hypertension (principal); I50.9 Heart failure, unspecified; I48.91 Unspecified atrial fibrillation; E03.9 Hypothyroidism, unspecified; Z79.01 Long term (current) use of anticoagulants
CPT/HCPCS: 36415; 70450; 71045; 80048; 80076; 81003; 83735; 83880; 84484; 85025; 85610; 85730; 93005; 99284